=== PATIENT | male | born 1970 | race Caucasian/White ===

== ENCOUNTER 2021-09-14 07:05 | Emergency (ER) | payer OTHER ==
[~2021-09-14] VITALS: Ht 167.6 cm; Wt 77.1 kg
[2021-09-14] MEDS ORDERED: fentaNYL CITRATE/PF 100 MCG/2 ML AMP IVP ONE (07:30)
[2021-09-14 07:36] VITALS: BP_SYST 191
[2021-09-14] MEDS ORDERED: MORPHINE 4 MG INJ. 4 MG/ML VIAL IVP ONE (09:15)
[2021-09-14] MEDS ORDERED: IBUP-1969 PO (09:29)
[2021-09-14] MEDS ORDERED: HYDR-3917 PO (09:29)
[2021-09-14 13:31] VITALS: BP_SYST 138
== END 2021-09-14 10:27 | disposition home or self-care (01) ==
LOC: SED 07:05
DX: S82.832A Other fracture of upper and lower end of left fibula, initial encounter for closed fracture (principal); W01.0XXA Fall on same level from slipping, tripping and stumbling without subsequent striking against object, initial encounter; Y93.89 Activity, other specified; Y92.89 Other specified places as the place of occurrence of the external cause; Y99.8 Other external cause status
CPT/HCPCS: 29505; 73590; 73610; 96374; 96375; 99284; J2270; J3010